=== PATIENT | female | born 1985 ===

== ENCOUNTER 2018-07-24 12:00 | Observation (INO) ==
[2018-07-24 11:21] LABS: Basophils # 0.1 K/mcL (0.0-0.2); Basophils % 0.9 %; Eosinophils # 0.2 K/mcL (0.0-0.6); Eosinophils % 3.6 %; Hematocrit 44.9 % (35.3-44.9); Hemoglobin 14.7 g/dL (11.5-15.4); Immature Granulocytes % 0.5 % (0-4); Lymphocytes # 2.2 K/mcL (0.6-4.6); Mean Corpuscular HGB Conc 32.7 g/dL (31.6-35.5); Mean Corpuscular Hemoglobin 28.1 pg (28.0-33.3); Mean Corpuscular Volume 85.7 fL (83.0-100.0); Mean Platelet Volume 10.2 fL (9.4-12.4); Monocytes # 0.7 K/mcL (0.0-1.3); Monocytes % 10.5 %; Neutrophils # 3.2 K/mcL (1.6-8.9); Platelet Count 190 K/mcL (140-400); Red Blood Count 5.24 M/mcL (3.82-4.97); Red Cell Distribution Width 11.8 % (11.5-14.5); Segmented Neutrophils % 50.5 %
--- NOTE | 2018-07-24 11:43 | History & Physical Report ---
Date of Encounter: 07/24/18 Time of Encounter: 11:40 24 Hour HP Update - Instructions Instructions: If the History and Physical is less than 30 days old and was completed prior to A.M. admission and or procedure and has NOT been updated on calendar day of procedure please complete this update prior to performing procedure. - Update Patient reports changes in Medical Condition: No Changes in examination, assessment, or condition: No Changes in Medication: No Preop tests/diagnostics Reviewed: No Surgery Remains Indicated: Yes Consent for Planned Operative Procedure(s) Verified: Yes - Pre-Operative Checklist Preoperative Checklist Indicated: Yes Prophylactic Antibiotic Ordered: No (Will take PO meds following procedure) Home Medications Include Beta Gaudencio: No Beta Gaudencio Taken Today (Day of Surgery): No Beta Gaudencio Taken Yesterday (Day Prior to Surgery): No Is VTE Prophylaxis Indicated?: NO - Attending Attestation 32yo female with SAB measuring ~8wk4d. Patient was seen in the [facility]ie on 07/22 and verbally consented for surgical intervention byway of a suction D&C if medical management failed. A TVUS was performed showing a thinned endometrial stripe. Patient reported passage of large clots with bleeding on Sunday s/p po misoprostol dose. She is still having minimal bleeding but much less per p atient. The suction D&C was therefore cancelled. Risks were given to the patient prior to discharge to home. RH positive, does not require rhogam. MD HARRY
--- NOTE | 2018-07-24 11:49 | Anesthesia Evaluation PreOp ---
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 Other Medical History: Other (missed at 10 weeks gestation) Anesthesia History: No Prior Anesthetic Complications, Past Anesthesia (no past surgeries) : Yes Alcohol Use: none Drug use: none Medications and Allergies Cephalexin [Keflex] 500 mg PO Q8HR 07/24/18 [History] Allergy/AdvReac Type Severity Reaction Status Date / Time No Known Allergies Allergy Verified 07/24/18 11:26 - Meds/Allergy Pre-op Review Medications Reviewed: Yes Allergies Reviewed: Yes Beta Blockers on Current Med List: No Anesthesia Results - Labs 07/24/18 11:05 Anesthesia Exam BP P71 R 16 T 98.9 Height: 5'4" Weight: 59.7 kg NPO (# of Hours): 16hrs Pain Scale Used: Numeric (1 - 10) - HEENT Pupil (Motor): Pupils equal Mallampati: II Teeth: Normal Oral Opening: Greater than 3 - 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
[~2018-07-24 12:00] MED LIST: Ringers Solution, Lactated 1,000 ML IVC SCH
== END 2018-07-24 12:15 | disposition home or self-care (01) ==
LOC: 1NENULAB
PROVIDERS: ADMIT Registered Nurse; ATTEND Registered Nurse